=== PATIENT | female | born 1960 | race Caucasian/White ===

== ENCOUNTER 2020-12-03 12:47 | Outpatient (RCR) | payer OTHER, SELFPAY ==
--- NOTE | 2020-12-03 14:59 | HP.PTEVAL_ITS ---
Patient's Visit Information KAVEH DOHERTY is a 60 year old F referred to Physical Therapy by RADHA VEAG with a diagnosis of PAIN IN RIGHT HIP,OTHER SPRAIN OF RIGHT HIP. Date of Evaluation: 12/03/20 Physical Therapist: Jose Campos, PT, Cert MDT, OCS - Visit Plan Frequency: 3x /Week Duration: 6 Weeks Plan: PT INTERVTIONS HIP ROM ,HIP STRENGTHNEING ,MODALTIES -US WITH HYDROCODIENE CREAM, DLS AND FUNCTIONAL STRENGTHNENING - Subjective This 60 y/o female presents to physical therapy with right hip pain. Patient has had right hip pain for one year initially symptoms where intermittent. Symptoms started in groin area also lateral hip pain. Those symptoms got better. Patient pain pain located medial thigh and LS region. Seen did x-rays which - try PT then if doesn't help ,MRI and cortisone injections. Aggravating factors walking uneven ground, squatting. kneeling and extended walking. Alleviating factors rest. Denies paresthesia/tingling .Does have LBP. Sleeping good at night. No injury or trauma. Does see chiropractor. Patient condition affects QOL and function. SOCIAL: . VOCATION: NOT WORKING - Pain Right Hip Pain Intensity (Out of 10): 4 Pain Intensity Range: 10 - Objective POSTURE:WFL. GAIT: reciprocal pattern. NEURO: intact. SYMMTRIES: align. PALAPTION: tender greater trochanter ,SI. FLEXABLITY: hamstrings min tight, piriformis min tight. MMT: quads/hams 4/5,hip flexion 4/5,hip abd 4-/5. LUMBAR ROM: flexion WFL ,extension min loss, side glides min loss. FLEXABLITY: hamstrings min loss, piriformis mild tight. HIP PROM: flexion 110 degrees, ER 60 degrees ,IR 45 DEGREES - Special Tests L/S Slump test left side: Negative L/S Slump test right side: Negative L/S Left Straight Leg Raise: Negative L/S Right Straight Leg Raise: Negative Lumbar Standing: Flexion - Mechanical Response: No effect Lumbar Standing: Flexion - Symptoms During Testing: Increases Lumbar Standing: Flexion - Symptoms After Testing: No worse Lumbar Standing: Extension - Mechanical Response: No effect Lumbar Standing: Extension - Symptoms During Testing: Increases Lumbar Standing: Extension - Symptoms After Testing: No better Lumbar Standing: Right Side Glides - Mechanical Response: No effect Lumbar Standing: Right Side [place] - Symptoms During Testing: No effect Lumbar Standing: Right Side [place] - Symptoms After Testing: No effect Lumbar Standing: Left Side [place] - Mechanical Response: No effect Lumbar Standing: Left Side [place] - Symptoms During Testing: No effect Lumbar Standing: Left Side [place] - Symptoms After Testing: No effect R Hip Scour: Negative R Hip Quadrant - Intraarticular Pathology: Negative R Hip WOODY - Intraarticular Pathology: Negative R Hip Trendelenberg - Glut Medius: Negative R Hip Dejon - IT Band: Negative - Goals Goal 1:: Patient to be I with HEP Goal Time Frame: 4-6 Weeks Goal 2:: Patient to decrease hip pain by 50% or to improve function Goal Time Frame: 4-6 Weeks Goal 3:: Patient to improve LFES score by 5 points or > to improve QOL. Goal Time Frame: 4-6 Weeks Goal 4:: Patient to increase hip strength 4/5 to improve function with bwalking Goal Time Frame: 4-6 Weeks Goal 5:: Patient to be able to walk on uneven surfaces and functional squatting with min limitations Goal Time Frame: 4-6 Weeks - Rehabilitation Potential Physical Therapy Diagnosis: This right pain pain with tenderness greater trochanter ,pain with functional activities walking on even surfaces thus benefit from skilled pt Rehabilitation Potential: Good - Anticipated Interventions Patient/Client Instruction: Educate patient on: Condition, Plan of Care For the Purpose of:: To decrease pain, To increase ROM, To improve muscle performance and motor function, To improve ability to perform ADL's, To increase tolerance to activity/condition/position, To improve performance and independence with ADL's, To improve ability of physical actions for home/community/work/leisure, To decrease soft tissue restriction, To increase flexibility/ROM, To improve endurance, To reduce risk of recurrence, To improve health and function, To improve ability to perform tasks related to life management Therapeutic Exercise to Include: Strength training, Balance training, Active ROM, Dynamic Lumbar Stabilization Comment: HIP For the Purpose of:: To decrease pain, To decrease swelling/inflammation, To improve muscle performance and motor function, To improve ability to perform ADL's, To increase tolerance to activity/condition/position, To improve ability of physical actions for home/community/work/leisure, To improve health of tissue, To decrease soft tissue restriction, To increase flexibility/ROM, To improve health and function, To improve ability to perform tasks related to life management TENS: Yes IF ES: Yes Cryotherapy (ice pack, ice massage): Yes Thermo therapy (hot pack): Yes Ultrasound (thermal/non thermal): Yes Comment: US WITH HYDROCORTIZONE CREAM For the Purpose of:: To decrease pain, To decrease swelling/inflammation, To improve nutrient delivery to tissue, To increase oxygenation perfusion, To improve health of tissue, To decrease soft tissue restriction Thank you for the opportunity to evaluate your patient. For Medicare and Medicare HMO plans, please review the plan of care and approve it. It will need to be FAXED BACK to us at [phone] for Medicare purposes. For Medicare only, by signing this I certify the plan of care. Please let me know if there are questions or concerns regarding this plan of care. Physician Signature: Date:
--- NOTE | 2021-02-06 11:04 | HP.PT.NRP ---
KAVEH DOHERTY was seen in my office for initial evaluation on 12/03/20. The following Plan of Care was established for this patient: Initial Frequency: 3x /Week Initial Duration: 6 Weeks Patient/Client Instruction: Educate patient on: Condition, Plan of Care For the Purpose of:: To decrease pain, To increase ROM, To improve muscle performance and motor function, To improve ability to perform ADL's, To increase tolerance to activity/condition/position, To improve performance and independence with ADL's, To improve ability of physical actions for home/community/work/leisure, To decrease soft tissue restriction, To increase flexibility/ROM, To improve endurance, To reduce risk of recurrence, To improve health and function, To improve ability to perform tasks related to life management Therapeutic Exercise to Include: Strength training, Balance training, Active ROM, Dynamic Lumbar Stabilization For the Purpose of:: To decrease pain, To decrease swelling/inflammation, To improve muscle performance and motor function, To improve ability to perform ADL's, To increase tolerance to activity/condition/position, To improve ability of physical actions for home/community/work/leisure, To improve health of tissue, To decrease soft tissue restriction, To increase flexibility/ROM, To improve health and function, To improve ability to perform tasks related to life management TENS: Yes IF ES: Yes Cryotherapy (ice pack, ice massage): Yes Thermo therapy (hot pack): Yes Ultrasound (thermal/non thermal): Yes Comment: US WITH HYDROCORTIZONE CREAM For the Purpose of:: To decrease pain, To decrease swelling/inflammation, To improve nutrient delivery to tissue, To increase oxygenation perfusion, To improve health of tissue, To decrease soft tissue restriction This patient was last seen in our office . Pertinent comments regarding their Physical therapy will appear below: Patient seen for PT evaluation for HEP At this point I will be discontinuing this patient from physical therapy. I would be happy to see this patient again in the future if found appropriate by the physician. Thank you! Jose Campos, PT, Cert MDT, OCS Balance/Gait/Functional tests - Balance/Special Test Scores Lower Extremity Functional Score: 42
== END 2020-12-03 19:00 | disposition home or self-care (01) ==
LOC: PT 12:47
PROVIDERS: PCP Student in an Organized Health Care Education/Training Program
DX: M25.551 Pain in right hip (principal); S73.191D Other sprain of right hip, subsequent encounter
CPT/HCPCS: 97035; 97110; 97162